=== PATIENT | female | born 1985 | race Caucasian/White ===

== ENCOUNTER 2016-03-14 13:28 | Outpatient (RCR) | payer OTHER | END 2016-03-20 | LOC: M PT 13:28 | PROVIDERS: ATTEND Orthopaedic Surgery | DX: Z51.89 Encounter for other specified aftercare (principal); M25.511 Pain in right shoulder; M41.20 Other idiopathic scoliosis, site unspecified ==

== ENCOUNTER 2016-03-29 03:16 | Emergency (ER) | payer OTHER ==
[2016-03-29] MEDS ORDERED: PROMETHAZINE INJ 25 MG/ML VIAL (J2550) As Ordered ONE (04:05)
--- NOTE | 2016-03-29 05:37 | EDDOCDS ---
Physician Documentation [facility] Name: Swetha Barbour Age: 30 yrs Sex: Female : 1985 Arrival Date: 03/29/2016 Time: 03:16 Bed 11 Private MD: Disposition: 03/29 05:22 Critical Care: Critical care not applicable. pc Disposition: 03/29/16 05:23 Discharged to Home/Self Care. Impression: Other viral enteritis, Anxiety disorder, unspecified. - Condition is Stable. - Discharge Instructions: Clear Liquid Diet, Viral Gastroenteritis. - Prescriptions for ZOFRAN ODT 4 mg - dissolve 1 tablet by ORAL route 4 times per day As needed do not chew, do not swallow whole; 10 tablet. - Medication Reconciliation, Local Pharmacy Hours form. - Follow up: Gracie Xavier MD; When: Call to arrange an appointment; Reason: Continuance of care. - Problem is new. - Symptoms have improved. HPI: 03:52 This 30 yrs old Female presents to ER via Walkin/Carried/Asstd with pc complaints of Abdominal Pain, Nausea/Vomiting. 03:52 The history is obtained from the patient. The patient presents with abdominal pain, pc umbilical area vomiting. The symptoms began suddenly at 02:30, and are unchanged since their onset. There have been multiple episodes. The patient has had contact with other people with similar complaints. Her 5yo child has been vomiting for 24 hours. At its worst, the symptoms were moderate. In the emergency department, the symptoms is mild. The pain is described as cramping. The is primarily located umbilical area. It does not radiate. The patient has not experienced similar symptoms in the past. The patient has not recently seen a physician. She says she is also having a panic attack because she doesn't "do well when people are vomiting and between my son being sick and now me, I think I'm just very anxious". Historical: - Allergies: Morphine; - Home Meds: 1. naproxen 500 mg Oral tab 1 tab every 12 hours 2. Tylenol 325 mg Oral tab 1 tab every 4 hours 3. Claritin 10 mg Oral tab 1 tab once daily - PMHx: Anxiety; - PSHx: ; wrist, left; mole removal; Tubal ligation; - The history from nurses notes was reviewed: and I agree with what is documented. - Social history: Smoking status: Patient states was never smoker of tobacco. No barriers to communication noted, The patient speaks fluent Brazilian, Speaks appropriately for age. - : The pt / caregiver states he / she is not on anticoagulants. Home medication list is obtained from the patient. - Hospitalizations: : No recent hospitalization is reported. - Exposure Risk Screening:: None identified. - Immunization history:: All immunizations up-to-date. - Family history: Not pertinent. - Social history:: the patient is a non-smoker, the patient does not drink alcohol. 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 The constitutional, cardiovascular, pc respiratory and neurological components are also addressed in the HPI. Exam: 03:52 General Appearance: alert, mild distress, anxious. pc 03:52 ENT: ear, nose and throat normal, pharynx normal. 03:52 Neck: The exam reveals no acute abnormalities. ROM is normal and painless. No nuchal rigidity is noted.. 03:52 Respiratory: no respiratory distress, normal breath sounds. 03:52 Cardiovascular: regular heart rhythm, normal heart sounds, equal and full pulses bilaterally, tachycardia, 115bpm. 03:52 Abdomen: soft, non-tender, no organomegaly, bowel sounds hyperactive. 03:52 Back: normal inspection. 03:52 Skin: skin color is normal, warm, dry. 03:52 Extremities: The extremities have a grossly normal appearance, are non-tender, without acute ROM abnormalities. 03:52 Neuro: oriented x 3, cranial nerves normal as tested, no motor deficits, no sensory deficits. 03:52 Psych: mood is normal, affect is appropriate. Vital Signs: 03:36 BP 122 / 76; Pulse 124; Resp 18; Temp 98.3(TE); Pulse Ox 98% ; Weight 62.6 kg / 138.01 nn1 lbs; Height 5 ft. 7 in. (170.18 cm); Pain 6/10; 05:12 Pulse 118 MON; cf2 05:12 Temp 98.0; Pulse Ox 99% on R/A; cf2 05:17 BP 116 / 69 (auto/); cf2 03:36 Body Mass Index 21.61 (62.60 kg, 170.18 cm) nn1 MDM: 03:52 IV Saline Lock ordered. pc 03:52 NS 0.9% 500 ml IV at bolus once ordered. pc 03:52 Promethazine 25 mg IVP once; dilute and administer 30-60 minutes ordered. pc 03:52 Differential diagnosis: Gastroenteritis anxiety. Plan: meds, IVF. pc 04:05 Financial registration complete. pm4 04:12 [facility] Payment Agreement was scanned into [employer] and attached to record. pm4 05:08 Vital Signs ordered. pc 05:22 Data reviewed: old medical records, vital signs, nurses notes. Test interpretation: pc none. The patient has been re-examined and re-evaluated. The patient's symptoms have markedly improved after treatment. Disposition: The historical points, examination findings, and any diagnostic results supporting the provided diagnosis, were discussed with the patient or legal guardian. The need for outpatient follow up with the provider listed on their discharge instructions was discussed. They were encouraged to return to [facility], or the nearest ED, if symptoms worsen/persist, or for any other questions/concerns. Administered Medications: 04:00 Drug: NS 0.9% 500 ml [sodium chloride 0.9 % intravenous solution] Route: IV; Rate: cf2 bolus; Site: left antecubital; 04:00 Drug: Promethazine 25 mg [promethazine 25 mg/mL injection solution (1 mL)] Route: IVP; cf2 Site: left antecubital; Signatures: Kris Marshall MD MD pc Nunez, Nikkole, RN RN nn1 Myriam Branch RN RN cf2 Israel Lawrence, Reg Reg pm4 The chart was reviewed and I authenticate all verbal orders and agree with the evaluation and treatment provided.Attachments: 04:12 [facility] Payment Agreement pm4 MTDD
--- NOTE | 2016-03-29 05:38 | EDDOCDS ---
Nurse's Notes [facility] Name: Swetha Barbour Age: 30 yrs Sex: Female : 1985 Arrival Date: 03/29/2016 Time: 03:16 Bed 11 Private MD: Diagnosis: Other viral enteritis;Anxiety disorder, unspecified Presentation: 03/29 03:30 Presenting complaint: Patient states: sudden onset of weakness and dizziness since nn1 arrival to ED. Reports nausea and vomiting since 0230. Reports 6 episodes of vomiting. Reports right sided abdominal pain. States she feels shaky, has been ahving cold sweats. Risk factors: the patient reports no vaginal bleeding. Adult Sepsis Screening: The patient does not have new or worsening altered mentation. Patient's respiratory rate is less than 22. Systolic blood pressure is greater than 100. Patient has a qSOFA score of 0- Negative Sepsis Screen. Suicide/Homicide risk assessment- the patient denies having any suicidal and/or homicidal ideations and does not present with any other emotional, behavioral or mental health complaints. Status: Patient is not a inbound customer service representative or dependent. Transition of care: patient was not received from another setting of care. 03:30 Acuity: JOSELINE Level 3 nn1 03:30 Method Of Arrival: Walkin/Carried/Asstd nn1 Triage Assessment: 03:34 General: Appears ill, uncomfortable, Behavior is appropriate for age, cooperative. nn1 Pain: Location: right upper quadrant Pain currently is 6 out of 10 on a pain scale. At worst was 8 out of 10 on a pain scale. Quality of pain is described as sharp, stabbing. HIV screening NA for this visit Offered previously. Neurological: Level of Consciousness is awake, alert, obeys commands, Oriented to person, place, time. Neurological: Reports dizziness, weakness. Cardiovascular:. GI: Abdomen is non- distended Reports nausea, vomiting, heart burn. Derm: Skin is pink, warm & dry. 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 naproxen 500 mg Oral tab 1 tab every 12 hours 2. Tylenol 325 mg Oral tab 1 tab every 4 hours 3. Claritin 10 mg Oral tab 1 tab once daily - PMHx: Anxiety; - PSHx: ; wrist, left; mole removal; Tubal ligation; - The history from nurses notes was reviewed: and I agree with what is documented. - Social history: Smoking status: Patient states was never smoker of tobacco. No barriers to communication noted, The patient speaks fluent Kyrgyz, Speaks appropriately for age. - : The pt / caregiver states he / she is not on anticoagulants. Home medication list is obtained from the patient. - Hospitalizations: : No recent hospitalization is reported. - Exposure Risk Screening:: None identified. - Immunization history:: All immunizations up-to-date. - Family history: Not pertinent. - Social history:: the patient is a non-smoker, the patient does not drink alcohol. Screenin:49 Screening information is obtained from the patient. Fall risk: No risks identified. cf2 Assistance ADL's: requires no assistance with activities of daily living. Abuse/DV Screen: The patient / caregiver reports he/she is: not in a situation that causes fear, pain or injury. Nutritional screening: No deficits noted. Advance Directives: Further advance directive information is declined. home support is adequate. Assessment: 04:49 Adult Sepsis Screening: The patient does not have new or worsening altered mentation. cf2 Patient's respiratory rate is less than 22. Systolic blood pressure is greater than 100. Patient has a qSOFA score of 0- Negative Sepsis Screen. General: Appears ill, Behavior is appropriate for age, flat. Pain: Location: abdomen. Neurological: No deficits noted. EENT: No deficits noted. Cardiovascular: No deficits noted. Respiratory: No deficits noted. GI: Abdomen is flat, non- distended Bowel sounds present X 4 quads. Abd is soft Abd is tender to palpation in right upper quadrant Guarding noted in right upper quadrant Reports upper abd pain, nausea, vomiting, intolerance of food, intolerance of fluids. : No deficits noted. Derm: No deficits noted. Musculoskeletal: No deficits noted. Injury Description: No known injury. 05:28 Reassessment: Patient states feeling better. Patient states symptoms have improved. cf2 Vital Signs: 03:36 BP 122 / 76; Pulse 124; Resp 18; Temp 98.3(TE); Pulse Ox 98% ; Weight 62.6 kg; Height 5 nn1 ft. 7 in. (170.18 cm); Pain 6/10; 05:12 Pulse 118 MON; cf2 05:12 Temp 98.0; Pulse Ox 99% on R/A; cf2 05:17 BP 116 / 69 (auto/); cf2 03:36 Body Mass Index 21.61 (62.60 kg, 170.18 cm) nn1 Vitals: 03:36 Log In Time: March 29, 2016 at 03:19. nn1 ED Course: 03:18 Patient visited by Brit Sullivan Reg. hs2 03:18 Patient moved to Waiting hs2 03:32 Triage Initiated nn1 03:38 Patient moved to 11 nn1 03:44 Kris Marshall MD is Attending Physician. pc 03:45 Myriam Branch RN is Primary Nurse. cf2 03:45 Patient visited by Myriam Branch RN. cf2 03:52 Patient visited by Kris Marshall MD. pc 04:03 Patient visited by Myriam Branch RN. cf2 04:08 Inserted saline lock: 20 gauge in left antecubital area. mgs 04:12 [facility] Payment Agreement was scanned into [employer] and attached to record. pm4 04:35 Patient visited by Myriam Branch RN. cf2 04:49 Patient visited by Myriam Branch RN. cf2 04:49 The patient / caregiver is instructed regarding the plan of care and ED course. Patient cf2 has correct armband on for positive identification. Placed in gown. Bed in low position. Call light in reach. Side rails up X 1. Side rails up X2. ekg monitor tech on. Pulse ox on. Property :Personal belongings accompany Pt. Door closed. Noise minimized. Visitors limited. Lights dimmed. Moved to private room. Verbal reassurance given. Warm blanket given. Pillow given. Head of bed elevated. Diet: Patient is NPO. 04:49 No procedures done that require assistance. cf2 05:19 Patient visited by Myriam Branch RN. cf2 05:23 Gracie Xavier MD is Referral Physician. pc 05:28 Patient visited by Myriam Branch RN. cf2 05:36 Patient visited by Myriam Branch RN. cf2 05:36 Discontinued lock. cf2 Administered Medications: 04:00 Drug: NS 0.9% 500 ml [sodium chloride 0.9 % intravenous solution] Route: IV; Rate: cf2 bolus; Site: left antecubital; 04:00 Drug: Promethazine 25 mg [promethazine 25 mg/mL injection solution (1 mL)] Route: IVP; cf2 Site: left antecubital; Order Results: There are currently no results for this order. Outcome: 05:23 Discharge ordered by Provider. 05:28 Discharge Assessment: Patient awake, alert and oriented x 3. No cognitive and/or cf2 functional deficits noted. Patient verbalized understanding of disposition instructions. Patient awake and alert. Oriented to person, place and time. patient administered narcotics - no. The following High Risk Discharge criteria are identified: None. Discharged to home ambulatory. Condition: good Condition: stable. Discharge instructions given to patient, Instructed on discharge instructions, follow up and referral plans. medication usage, Demonstrated understanding of instructions, medications, Prescriptions given X 1. No special radiology studies were completed. 05:37 Patient left the ED. cf2 Signatures: Kris Marshall MD MD Jarek Go,SHIRLEY RN mgs Jenniffer Huerta RN RN nn1 Brit Sullivan, Reg Reg hs2 Myriam Branch RN RN cf2 Israel Lawrence, Reg Reg pm4 MTDD
--- NOTE | 2016-03-31 06:37 | EDDOCDS ---
Physician Documentation [facility] Name: Swetha Barbour Age: 30 yrs Sex: Female : 1985 Arrival Date: 03/29/2016 Time: 03:16 Bed 11 Private MD: Disposition: 03/29 05:22 Critical Care: Critical care not applicable. pc Disposition: 03/29/16 05:23 Discharged to Home/Self Care. Impression: Other viral enteritis, Anxiety disorder, unspecified. - Condition is Stable. - Discharge Instructions: Clear Liquid Diet, Viral Gastroenteritis. - Prescriptions for ZOFRAN ODT 4 mg - dissolve 1 tablet by ORAL route 4 times per day As needed do not chew, do not swallow whole; 10 tablet. - Medication Reconciliation, Local Pharmacy Hours form. - Follow up: Gracie Xavier MD; When: Call to arrange an appointment; Reason: Continuance of care. - Problem is new. - Symptoms have improved. HPI: 03:52 This 30 yrs old Female presents to ER via Walkin/Carried/Asstd with pc complaints of Abdominal Pain, Nausea/Vomiting. 03:52 The history is obtained from the patient. The patient presents with abdominal pain, pc umbilical area vomiting. The symptoms began suddenly at 02:30, and are unchanged since their onset. There have been multiple episodes. The patient has had contact with other people with similar complaints. Her 5yo child has been vomiting for 24 hours. At its worst, the symptoms were moderate. In the emergency department, the symptoms is mild. The pain is described as cramping. The is primarily located umbilical area. It does not radiate. The patient has not experienced similar symptoms in the past. The patient has not recently seen a physician. She says she is also having a panic attack because she doesn't "do well when people are vomiting and between my son being sick and now me, I think I'm just very anxious". Historical: - Allergies: Morphine; - Home Meds: 1. naproxen 500 mg Oral tab 1 tab every 12 hours 2. Tylenol 325 mg Oral tab 1 tab every 4 hours 3. Claritin 10 mg Oral tab 1 tab once daily - PMHx: Anxiety; - PSHx: ; wrist, left; mole removal; Tubal ligation; - The history from nurses notes was reviewed: and I agree with what is documented. - Social history: Smoking status: Patient states was never smoker of tobacco. No barriers to communication noted, The patient speaks fluent Guamanian, Speaks appropriately for age. - : The pt / caregiver states he / she is not on anticoagulants. Home medication list is obtained from the patient. - Hospitalizations: : No recent hospitalization is reported. - Exposure Risk Screening:: None identified. - Immunization history:: All immunizations up-to-date. - Family history: Not pertinent. - Social history:: the patient is a non-smoker, the patient does not drink alcohol. 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 The constitutional, cardiovascular, pc respiratory and neurological components are also addressed in the HPI. Exam: 03:52 General Appearance: alert, mild distress, anxious. pc 03:52 ENT: ear, nose and throat normal, pharynx normal. 03:52 Neck: The exam reveals no acute abnormalities. ROM is normal and painless. No nuchal rigidity is noted.. 03:52 Respiratory: no respiratory distress, normal breath sounds. 03:52 Cardiovascular: regular heart rhythm, normal heart sounds, equal and full pulses bilaterally, tachycardia, 115bpm. 03:52 Abdomen: soft, non-tender, no organomegaly, bowel sounds hyperactive. 03:52 Back: normal inspection. 03:52 Skin: skin color is normal, warm, dry. 03:52 Extremities: The extremities have a grossly normal appearance, are non-tender, without acute ROM abnormalities. 03:52 Neuro: oriented x 3, cranial nerves normal as tested, no motor deficits, no sensory deficits. 03:52 Psych: mood is normal, affect is appropriate. Vital Signs: 03:36 BP 122 / 76; Pulse 124; Resp 18; Temp 98.3(TE); Pulse Ox 98% ; Weight 62.6 kg / 138.01 nn1 lbs; Height 5 ft. 7 in. (170.18 cm); Pain 6/10; 05:12 Pulse 118 MON; cf2 05:12 Temp 98.0; Pulse Ox 99% on R/A; cf2 05:17 BP 116 / 69 (auto/); cf2 03:36 Body Mass Index 21.61 (62.60 kg, 170.18 cm) nn1 MDM: 03:52 IV Saline Lock ordered. pc 03:52 NS 0.9% 500 ml IV at bolus once ordered. pc 03:52 Promethazine 25 mg IVP once; dilute and administer 30-60 minutes ordered. pc 03:52 Differential diagnosis: Gastroenteritis anxiety. Plan: meds, IVF. pc 04:05 Financial registration complete. pm4 04:12 [facility] Payment Agreement was scanned into [employer] and attached to record. pm4 05:08 Vital Signs ordered. pc 05:22 Data reviewed: old medical records, vital signs, nurses notes. Test interpretation: pc none. The patient has been re-examined and re-evaluated. The patient's symptoms have markedly improved after treatment. Disposition: The historical points, examination findings, and any diagnostic results supporting the provided diagnosis, were discussed with the patient or legal guardian. The need for outpatient follow up with the provider listed on their discharge instructions was discussed. They were encouraged to return to [facility], or the nearest ED, if symptoms worsen/persist, or for any other questions/concerns. Administered Medications: 04:00 Drug: NS 0.9% 500 ml [sodium chloride 0.9 % intravenous solution] Route: IV; Rate: cf2 bolus; Site: left antecubital; 04:00 Drug: Promethazine 25 mg [promethazine 25 mg/mL injection solution (1 mL)] Route: IVP; cf2 Site: left antecubital; Signatures: Kris Marshall MD MD pc Nunez, Nikkole, RN RN nn1 Myriam Branch RN RN cf2 Israel Lawrence, Reg Reg pm4 The chart was reviewed and I authenticate all verbal orders and agree with the evaluation and treatment provided.Attachments: 04:12 [facility] Payment Agreement pm4 Chart Complete MTDD
--- NOTE | 2016-03-31 06:37 | EDDOCDS ---
Nurse's Notes [facility] Name: Swetha Barbour Age: 30 yrs Sex: Female : 1985 Arrival Date: 03/29/2016 Time: 03:16 Bed 11 Private MD: Diagnosis: Other viral enteritis;Anxiety disorder, unspecified Presentation: 03/29 03:30 Presenting complaint: Patient states: sudden onset of weakness and dizziness since nn1 arrival to ED. Reports nausea and vomiting since 0230. Reports 6 episodes of vomiting. Reports right sided abdominal pain. States she feels shaky, has been ahving cold sweats. Risk factors: the patient reports no vaginal bleeding. Adult Sepsis Screening: The patient does not have new or worsening altered mentation. Patient's respiratory rate is less than 22. Systolic blood pressure is greater than 100. Patient has a qSOFA score of 0- Negative Sepsis Screen. Suicide/Homicide risk assessment- the patient denies having any suicidal and/or homicidal ideations and does not present with any other emotional, behavioral or mental health complaints. 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 Transition of care: patient was not received from another setting of care. 03:30 Acuity: JOSELINE Level 3 nn1 03:30 Method Of Arrival: Walkin/Carried/Asstd nn1 Triage Assessment: 03:34 General: Appears ill, uncomfortable, Behavior is appropriate for age, cooperative. nn1 Pain: Location: right upper quadrant Pain currently is 6 out of 10 on a pain scale. At worst was 8 out of 10 on a pain scale. Quality of pain is described as sharp, stabbing. HIV screening NA for this visit Offered previously. Neurological: Level of Consciousness is awake, alert, obeys commands, Oriented to person, place, time. Neurological: Reports dizziness, weakness. Cardiovascular:. GI: Abdomen is non- distended Reports nausea, vomiting, heart burn. Derm: Skin is pink, warm & dry. 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 naproxen 500 mg Oral tab 1 tab every 12 hours 2. Tylenol 325 mg Oral tab 1 tab every 4 hours 3. Claritin 10 mg Oral tab 1 tab once daily - PMHx: Anxiety; - PSHx: ; wrist, left; mole removal; Tubal ligation; - The history from nurses notes was reviewed: and I agree with what is documented. - Social history: Smoking status: Patient states was never smoker of tobacco. No barriers to communication noted, The patient speaks fluent Syriac, Speaks appropriately for age. - : The pt / caregiver states he / she is not on anticoagulants. Home medication list is obtained from the patient. - Hospitalizations: : No recent hospitalization is reported. - Exposure Risk Screening:: None identified. - Immunization history:: All immunizations up-to-date. - Family history: Not pertinent. - Social history:: the patient is a non-smoker, the patient does not drink alcohol. Screenin:49 Screening information is obtained from the patient. Fall risk: No risks identified. cf2 Assistance ADL's: requires no assistance with activities of daily living. Abuse/DV Screen: The patient / caregiver reports he/she is: not in a situation that causes fear, pain or injury. Nutritional screening: No deficits noted. Advance Directives: Further advance directive information is declined. home support is adequate. Assessment: 04:49 Adult Sepsis Screening: The patient does not have new or worsening altered mentation. cf2 Patient's respiratory rate is less than 22. Systolic blood pressure is greater than 100. Patient has a qSOFA score of 0- Negative Sepsis Screen. General: Appears ill, Behavior is appropriate for age, flat. Pain: Location: abdomen. Neurological: No deficits noted. EENT: No deficits noted. Cardiovascular: No deficits noted. Respiratory: No deficits noted. GI: Abdomen is flat, non- distended Bowel sounds present X 4 quads. Abd is soft Abd is tender to palpation in right upper quadrant Guarding noted in right upper quadrant Reports upper abd pain, nausea, vomiting, intolerance of food, intolerance of fluids. : No deficits noted. Derm: No deficits noted. Musculoskeletal: No deficits noted. Injury Description: No known injury. 05:28 Reassessment: Patient states feeling better. Patient states symptoms have improved. cf2 Vital Signs: 03:36 BP 122 / 76; Pulse 124; Resp 18; Temp 98.3(TE); Pulse Ox 98% ; Weight 62.6 kg; Height 5 nn1 ft. 7 in. (170.18 cm); Pain 6/10; 05:12 Pulse 118 MON; cf2 05:12 Temp 98.0; Pulse Ox 99% on R/A; cf2 05:17 BP 116 / 69 (auto/); cf2 03:36 Body Mass Index 21.61 (62.60 kg, 170.18 cm) nn1 Vitals: 03:36 Log In Time: March 29, 2016 at 03:19. nn1 ED Course: 03:18 Patient visited by Brit Sullivan Reg. hs2 03:18 Patient moved to Waiting hs2 03:32 Triage Initiated nn1 03:38 Patient moved to 11 nn1 03:44 Kris Marshall MD is Attending Physician. pc 03:45 Myriam Branch RN is Primary Nurse. cf2 03:45 Patient visited by Myriam Branch RN. cf2 03:52 Patient visited by Kris Marshall MD. pc 04:03 Patient visited by Myriam Branch RN. cf2 04:08 Inserted saline lock: 20 gauge in left antecubital area. mgs 04:12 [facility] Payment Agreement was scanned into [employer] and attached to record. pm4 04:35 Patient visited by Myriam Branch RN. cf2 04:49 Patient visited by Myriam Branch RN. cf2 04:49 The patient / caregiver is instructed regarding the plan of care and ED course. Patient cf2 has correct armband on for positive identification. Placed in gown. Bed in low position. Call light in reach. Side rails up X 1. Side rails up X2. radiation monitor on. Pulse ox on. Property :Personal belongings accompany Pt. Door closed. Noise minimized. Visitors limited. Lights dimmed. Moved to private room. Verbal reassurance given. Warm blanket given. Pillow given. Head of bed elevated. Diet: Patient is NPO. 04:49 No procedures done that require assistance. cf2 05:19 Patient visited by Myriam Branch RN. cf2 05:23 Gracie Xavier MD is Referral Physician. pc 05:28 Patient visited by Myriam Branch RN. cf2 05:36 Patient visited by Myriam Branch RN. cf2 05:36 Discontinued lock. cf2 Administered Medications: 04:00 Drug: NS 0.9% 500 ml [sodium chloride 0.9 % intravenous solution] Route: IV; Rate: cf2 bolus; Site: left antecubital; 04:00 Drug: Promethazine 25 mg [promethazine 25 mg/mL injection solution (1 mL)] Route: IVP; cf2 Site: left antecubital; Order Results: There are currently no results for this order. Outcome: 05:23 Discharge ordered by Provider. 05:28 Discharge Assessment: Patient awake, alert and oriented x 3. No cognitive and/or cf2 functional deficits noted. Patient verbalized understanding of disposition instructions. Patient awake and alert. Oriented to person, place and time. patient administered narcotics - no. The following High Risk Discharge criteria are identified: None. Discharged to home ambulatory. Condition: good Condition: stable. Discharge instructions given to patient, Instructed on discharge instructions, follow up and referral plans. medication usage, Demonstrated understanding of instructions, medications, Prescriptions given X 1. No special radiology studies were completed. 05:37 Patient left the ED. cf2 Signatures: Kris Marshall MD MD Jarek Go,SHIRLEY RN s Jenniffer Huerta RN RN nn1 Brit Sullivan, Reg Reg hs2 Myriam Branch RN RN cf2 Israel Lawrence, Reg Reg pm4 Chart Complete MTDD
--- NOTE | 2016-03-31 06:37 | EDDOCDS ---
Physician Documentation [facility] Name: Swetha Barbour Age: 30 yrs Sex: Female : 1985 Arrival Date: 03/29/2016 Time: 03:16 Bed 11 Private MD: Disposition: 03/29 05:22 Critical Care: Critical care not applicable. pc Disposition: 03/29/16 05:23 Discharged to Home/Self Care. Impression: Other viral enteritis, Anxiety disorder, unspecified. - Condition is Stable. - Discharge Instructions: Clear Liquid Diet, Viral Gastroenteritis. - Prescriptions for ZOFRAN ODT 4 mg - dissolve 1 tablet by ORAL route 4 times per day As needed do not chew, do not swallow whole; 10 tablet. - Medication Reconciliation, Local Pharmacy Hours form. - Follow up: Gracie Xavier MD; When: Call to arrange an appointment; Reason: Continuance of care. - Problem is new. - Symptoms have improved. HPI: 03:52 This 30 yrs old Female presents to ER via Walkin/Carried/Asstd with pc complaints of Abdominal Pain, Nausea/Vomiting. 03:52 The history is obtained from the patient. The patient presents with abdominal pain, pc umbilical area vomiting. The symptoms began suddenly at 02:30, and are unchanged since their onset. There have been multiple episodes. The patient has had contact with other people with similar complaints. Her 5yo child has been vomiting for 24 hours. At its worst, the symptoms were moderate. In the emergency department, the symptoms is mild. The pain is described as cramping. The is primarily located umbilical area. It does not radiate. The patient has not experienced similar symptoms in the past. The patient has not recently seen a physician. She says she is also having a panic attack because she doesn't "do well when people are vomiting and between my son being sick and now me, I think I'm just very anxious". Historical: - Allergies: Morphine; - Home Meds: 1. naproxen 500 mg Oral tab 1 tab every 12 hours 2. Tylenol 325 mg Oral tab 1 tab every 4 hours 3. Claritin 10 mg Oral tab 1 tab once daily - PMHx: Anxiety; - PSHx: ; wrist, left; mole removal; Tubal ligation; - The history from nurses notes was reviewed: and I agree with what is documented. - Social history: Smoking status: Patient states was never smoker of tobacco. No barriers to communication noted, The patient speaks fluent Polish, Speaks appropriately for age. - : The pt / caregiver states he / she is not on anticoagulants. Home medication list is obtained from the patient. - Hospitalizations: : No recent hospitalization is reported. - Exposure Risk Screening:: None identified. - Immunization history:: All immunizations up-to-date. - Family history: Not pertinent. - Social history:: the patient is a non-smoker, the patient does not drink alcohol. 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 The constitutional, cardiovascular, pc respiratory and neurological components are also addressed in the HPI. Exam: 03:52 General Appearance: alert, mild distress, anxious. pc 03:52 ENT: ear, nose and throat normal, pharynx normal. 03:52 Neck: The exam reveals no acute abnormalities. ROM is normal and painless. No nuchal rigidity is noted.. 03:52 Respiratory: no respiratory distress, normal breath sounds. 03:52 Cardiovascular: regular heart rhythm, normal heart sounds, equal and full pulses bilaterally, tachycardia, 115bpm. 03:52 Abdomen: soft, non-tender, no organomegaly, bowel sounds hyperactive. 03:52 Back: normal inspection. 03:52 Skin: skin color is normal, warm, dry. 03:52 Extremities: The extremities have a grossly normal appearance, are non-tender, without acute ROM abnormalities. 03:52 Neuro: oriented x 3, cranial nerves normal as tested, no motor deficits, no sensory deficits. 03:52 Psych: mood is normal, affect is appropriate. Vital Signs: 03:36 BP 122 / 76; Pulse 124; Resp 18; Temp 98.3(TE); Pulse Ox 98% ; Weight 62.6 kg / 138.01 nn1 lbs; Height 5 ft. 7 in. (170.18 cm); Pain 6/10; 05:12 Pulse 118 MON; cf2 05:12 Temp 98.0; Pulse Ox 99% on R/A; cf2 05:17 BP 116 / 69 (auto/); cf2 03:36 Body Mass Index 21.61 (62.60 kg, 170.18 cm) nn1 MDM: 03:52 IV Saline Lock ordered. pc 03:52 NS 0.9% 500 ml IV at bolus once ordered. pc 03:52 Promethazine 25 mg IVP once; dilute and administer 30-60 minutes ordered. pc 03:52 Differential diagnosis: Gastroenteritis anxiety. Plan: meds, IVF. pc 04:05 Financial registration complete. pm4 04:12 [facility] Payment Agreement was scanned into [employer] and attached to record. pm4 05:08 Vital Signs ordered. pc 05:22 Data reviewed: old medical records, vital signs, nurses notes. Test interpretation: pc none. The patient has been re-examined and re-evaluated. The patient's symptoms have markedly improved after treatment. Disposition: The historical points, examination findings, and any diagnostic results supporting the provided diagnosis, were discussed with the patient or legal guardian. The need for outpatient follow up with the provider listed on their discharge instructions was discussed. They were encouraged to return to [facility], or the nearest ED, if symptoms worsen/persist, or for any other questions/concerns. Administered Medications: 04:00 Drug: NS 0.9% 500 ml [sodium chloride 0.9 % intravenous solution] Route: IV; Rate: cf2 bolus; Site: left antecubital; 04:00 Drug: Promethazine 25 mg [promethazine 25 mg/mL injection solution (1 mL)] Route: IVP; cf2 Site: left antecubital; Signatures: Kris Marshall MD MD pc Nunez, Nikkole, RN RN nn1 Myriam Branch RN RN cf2 Israel Lawrence, Reg Reg pm4 The chart was reviewed and I authenticate all verbal orders and agree with the evaluation and treatment provided.Attachments: 04:12 [facility] Payment Agreement pm4 Chart Complete MTDD
== END 2016-03-29 05:37 | disposition home or self-care (01) ==
LOC: M ED 03:16
DX: A08.39 Other viral enteritis (principal); F41.9 Anxiety disorder, unspecified; Z79.899 Other long term (current) drug therapy; Z88.5 Allergy status to narcotic agent

== ENCOUNTER 2016-04-16 12:00 | Outpatient (RCR) | payer OTHER | END 2016-04-17 | LOC: M PT 12:00 | PROVIDERS: ATTEND Orthopaedic Surgery | DX: Z51.89 Encounter for other specified aftercare (principal); M41.20 Other idiopathic scoliosis, site unspecified; M25.511 Pain in right shoulder ==

== ENCOUNTER 2016-06-12 07:00 | Outpatient (RCR) | payer OTHER | END 2016-06-17 | LOC: M PT 07:00 | PROVIDERS: ATTEND Orthopaedic Surgery | DX: Z51.89 Encounter for other specified aftercare (principal); M75.121 Complete rotator cuff tear or rupture of right shoulder, not specified as traumatic ==

== ENCOUNTER 2016-07-12 07:45 | Outpatient (RCR) | payer MEDICAID, OTHER, SELFPAY | END 2016-07-18 | LOC: M PT 07:45 | PROVIDERS: ATTEND Orthopaedic Surgery | DX: Z51.89 Encounter for other specified aftercare (principal); Z96.9 Presence of functional implant, unspecified ==

== ENCOUNTER 2016-08-02 09:15 | Outpatient (RCR) | payer OTHER | END 2016-08-17 | LOC: M PT 09:15 | PROVIDERS: ATTEND Orthopaedic Surgery | DX: Z51.89 Encounter for other specified aftercare (principal); M25.511 Pain in right shoulder ==

== ENCOUNTER 2016-10-25 04:11 | Emergency (ER) | payer OTHER ==
[~2016-10-25] VITALS: Ht 172.7 cm; Wt 62.7 kg
[2016-10-25] MEDS ORDERED: ONDANSETRON 4MG/2ML VIAL (J2405) IV ONE (05:15)
[2016-10-25] MEDS ORDERED: HYDROmorphone HCL 1 MG/ML SYRINGE (J1170) IV PRN (05:15)
[2016-10-25] MEDS ORDERED: NS 1,000 ML IV ONE (05:15)
--- NOTE | 2016-10-25 06:00 | REPUSA ---
CLINICAL HISTORY: Abdominal pain. TECHNIQUE: Realtime sonographic images were obtained in multiple projections. COMMENTS: The liver is of normal size, parenchyma demonstrates normal echogenicity. No discrete hepatic mass is seen. There is no intra or extrahepatic biliary ductal dilatation. CBD measures 3.5mm. The gallbladder is physiologically distended without evidence of calculi. The gallbladder wall is not thickened and there is no pericholecystic fluid. There is no abdominal ascites. The right kidney measures 10.5 x 4.9 x 4.3 cm, free of hydronephrosis. IMPRESSION: Unremarkable study. Thank you for your kind referral of this patient.
[2016-10-25 06:12] LABS: BASO % 0.8 % (0.0-1.0); EOS # 0.1 K/mm3 (0.0-0.50); EOS % 1.9 % (0.0-3.0); LARGE UNSTAINED CELL # 0.1 K/mm3 (0.0-0.4); LYMPH # 1.5 K/mm3 (1.5-4.5); LYMPH % 28.7 % (24.0-44.0); MEAN CORPUSCULAR HEMOGLOBIN 30.1 pg (27.0-33.0); MEAN CORPUSCULAR HGB CONC 33.2 g/dl (32.0-36.5); MEAN CORPUSCULAR VOLUME 90.8 fl (80.0-96.0); MONO # 0.3 K/mm3 (0.0-0.8); MONO % 6.3 % (0.0-5.0); NEUTROPHILS % 60.3 % (36.0-66.0); PLATELET COUNT, AUTOMATED 217 k/mm3 (150-450); RED CELL DISTRIBUTION WIDTH 12.6 % (11.5-14.5)
[2016-10-25 06:26] LABS: CONTROL LINE HCG INT CTR LINE PRESENT
[2016-10-25 06:34] LABS: ALBUMIN/GLOBULIN RATIO 1.21 (1.00-1.93); ALKALINE PHOSPHATASE 52 U/L (45-117); ALT/SGPT 14 U/L (12-78); ANION GAP 7 MEQ/L (8-16); AST/SGOT 15 U/L (15-37); BILIRUBIN,DIRECT < 0.1 MG/DL (0.0-0.2); BILIRUBIN,TOTAL 0.5 MG/DL (0.2-1.0); BLOOD UREA NITROGEN 13 MG/DL (7-18); CALCIUM LEVEL 8.4 MG/DL (8.5-10.1); CARBON DIOXIDE LEVEL 25 MEQ/L (21-32); CHLORIDE LEVEL 108 MEQ/L (98-107); CREATININE FOR GFR 0.64 MG/DL (0.55-1.02); GLOMERULAR FILTRATION RATE > 60.0 (>60); GLUCOSE, FASTING 115 MG/DL (70-105); POTASSIUM SERUM 4.1 MEQ/L (3.5-5.1); SODIUM LEVEL 140 MEQ/L (136-145); TOTAL PROTEIN 7.3 GM/DL (6.4-8.2)
[2016-10-25] MEDS ORDERED: HYOS0.1248 PO (06:40)
[2016-10-25] MEDS ORDERED: HYOSCYAMINE SULFATE 0.125 MG SUBL TABLET PO ONE (06:45)
[2016-10-25 07:11] VITALS: BP 104/63
== END 2016-10-25 07:15 | disposition home or self-care (01) ==
LOC: M ED 04:11
DX: K80.50 Calculus of bile duct without cholangitis or cholecystitis without obstruction (principal)
CPT/HCPCS: 76705; 80048; 80076; 81001; 83690; 84703; 85025; 87040; 87086; 96374; 96375; 99284; J1170; J2405

== ENCOUNTER 2016-10-27 04:02 | Emergency (ER) | payer OTHER ==
[~2016-10-27] VITALS: Ht 172.7 cm; Wt 63.0 kg
[~2016-10-27 04:02] MED LIST: HYOS0.1248 PO
[2016-10-27] MEDS ORDERED: NS 1,000 ML IV ONE (05:15)
[2016-10-27] MEDS ORDERED: LORazepam 2 MG/ML VIAL (J2060) IV STA (06:04)
[2016-10-27 06:10] LABS: BASO % 0.2 % (0.0-1.0); EOS % 0.7 % (0.0-3.0); LARGE UNSTAINED CELL # 0.1 K/mm3 (0.0-0.4); LARGE UNSTAINED CELL % 1.6 % (0.0-4.0); LYMPH # 1.1 K/mm3 (1.5-4.5); MEAN CORPUSCULAR HEMOGLOBIN 30.8 pg (27.0-33.0); MEAN CORPUSCULAR HGB CONC 34.2 g/dl (32.0-36.5); MONO # 0.2 K/mm3 (0.0-0.8); NEUTROPHILS # 3.5 K/mm3 (1.8-7.7); NEUTROPHILS % 71.5 % (36.0-66.0); PLATELET COUNT, AUTOMATED 256 k/mm3 (150-450); RED CELL DISTRIBUTION WIDTH 12.3 % (11.5-14.5)
[2016-10-27] MEDS ORDERED: HYDROmorphone HCL 1 MG/ML SYRINGE (J1170) IV PRN (06:15)
[2016-10-27] MEDS ORDERED: ONDANSETRON 4MG/2ML VIAL (J2405) IV ONE (06:15)
[2016-10-27 06:29] LABS: CONTROL LINE HCG INT CTR LINE PRESENT
[2016-10-27 06:43] LABS: ALBUMIN 4.3 GM/DL (3.2-5.2); ALKALINE PHOSPHATASE 64 U/L (45-117); ALT/SGPT 13 U/L (12-78); ANION GAP 7 MEQ/L (8-16); AST/SGOT 8 U/L (15-37); BILIRUBIN,DIRECT 0.1 MG/DL (0.0-0.2); BILIRUBIN,TOTAL 0.6 MG/DL (0.2-1.0); BLOOD UREA NITROGEN 11 MG/DL (7-18); CALCIUM LEVEL 9.1 MG/DL (8.5-10.1); CARBON DIOXIDE LEVEL 27 MEQ/L (21-32); CHLORIDE LEVEL 105 MEQ/L (98-107); CREATININE FOR GFR 0.66 MG/DL (0.55-1.02); GLOMERULAR FILTRATION RATE > 60.0 (>60); GLUCOSE, FASTING 113 MG/DL (70-105); POTASSIUM SERUM 3.8 MEQ/L (3.5-5.1); SODIUM LEVEL 139 MEQ/L (136-145); TOTAL PROTEIN 8.2 GM/DL (6.4-8.2)
[2016-10-27] MEDS ORDERED: GASTROGRAFIN SOLUTION 30ML PO ONE (07:15)
[2016-10-27] MEDS ORDERED: GASTROGRAFIN SOLUTION 30ML (Q9963) PO ONE (07:45)
[2016-10-27] MEDS ORDERED: ISOVUE-370 76% 100ML VIAL (Q9967) As Ordered ONE (08:52)
[2016-10-27] MEDS ORDERED: BENT20TA PO (09:35)
[2016-10-27 10:01] VITALS: BP 111/60
--- NOTE | 2016-10-29 08:16 | REP ---
Clinical: Acute abdominal pain. Technique: Axial contrast enhanced images from the lung bases to the pubic symphysis using oral and 100 ml Isovue 370 intravenous contrast material with coronal and sagittal re-formations. Findings: Lung bases are clear. Visualized heart and pericardium normal. Liver, spleen, pancreas, gallbladder, bilateral adrenal glands and kidneys are normal. The enteric system is without obstruction or acute inflammatory process. Pelvis demonstrates normal bladder and age-appropriate uterus/adnexa. No ascites. No free air. No adenopathy. No mass lesion. Vasculature is normal. Musculoskeletal structures demonstrate chronic scoliosis. Impression: No acute abdominopelvic pathology appreciated. Signed by Titi Hanson MD 10/27/2016 09:12 A
== END 2016-10-27 10:14 | disposition home or self-care (01) ==
LOC: M ED 04:02
DX: K58.9 Irritable bowel syndrome, unspecified (principal)
CPT/HCPCS: 74177; 80048; 80076; 81001; 83605; 83690; 84703; 85025; 87040; 87086; 93041; 96374; 96375; 99284; J1170; J2060; J2405; Q9963; Q9967

== ENCOUNTER → 2016-11-07 | Outpatient (REF) | payer OTHER ==
[~2016-11-07] MED LIST changes: +BENT20TA PO; +OMEP20TA PO
== END ==
LOC: M SFHCPLAZ 09:17
PROVIDERS: ATTEND Family Medicine
DX: R10.11 Right upper quadrant pain (principal); R19.7 Diarrhea, unspecified

== ENCOUNTER → 2016-11-09 | Outpatient (CLI) | payer OTHER ==
--- NOTE | 2016-11-09 10:48 | REP ---
HIDA SCAN AND GALLBLADDER EJECTION FRACTION: Following the intravenous administration of 6.6 millicuries technetium 99m mebrofenin, multiple images of the right upper quadrant are performed every 5 minutes for a period of 1 hour. The gallbladder is visualized at 10 minutes postinjection. There is biliary to bowel transit at 25-30 minutes post injection. At the 1-hour iris 8 ounces of Ensure Enlive is ingested and further imaging performed for one hour. Gallbladder activity is measured and gallbladder ejection fraction is calculated at 92%, which is normal. IMPRESSION: Normal gallbladder ejection fraction. Signed by Aguilar Aj MD 11/09/2016 02:22 P
== END ==
LOC: M RAD 07:58
PROVIDERS: ATTEND Family Medicine
DX: R10.11 Right upper quadrant pain (principal)

== ENCOUNTER 2016-12-07 07:26 | Emergency (ER) | payer OTHER ==
[~2016-12-07] VITALS: Ht 170.2 cm; Wt 63.0 kg
[~2016-12-07 07:26] MED LIST changes: -OMEP20TA PO
[2016-12-07] MEDS ORDERED: OMEP20TA PO (07:39)
[2016-12-07 09:48] VITALS: BP 131/67
== END 2016-12-07 09:52 | disposition home or self-care (01) ==
LOC: M ED 07:26
DX: F41.9 Anxiety disorder, unspecified (principal); M41.9 Scoliosis, unspecified; J30.9 Allergic rhinitis, unspecified; Z79.899 Other long term (current) drug therapy; Z88.5 Allergy status to narcotic agent

== ENCOUNTER 2017-02-26 11:25 | Day surgery (SDC) | payer OTHER ==
[2017-02-26] MEDS: NS 1,000 ML IV (12:45)
[2017-02-26] MEDS ORDERED: MIDAZOLAM INJ 2 MG/2 ML VIAL (J2250) As Ordered (13:05)
[2017-02-26] MEDS ORDERED: LIDOCAINE 2% INJ 100 MG/5 ML SDV (FOR ANES.) As Ordered (13:14)
[2017-02-26] MEDS ORDERED: PROPOFOL 200 MG/20 ML VIAL As Ordered (13:14)
== END 2017-02-26 14:00 | disposition home or self-care (01) ==
LOC: M OPP 11:25
DX: R10.13 Epigastric pain (principal); K31.89 Other diseases of stomach and duodenum; R10.11 Right upper quadrant pain; R63.4 Abnormal weight loss; F31.9 Bipolar disorder, unspecified; K21.9 Gastro-esophageal reflux disease without esophagitis; E78.5 Hyperlipidemia, unspecified; R51 Headache; Z79.899 Other long term (current) drug therapy; Z88.5 Allergy status to narcotic agent; Z80.0 Family history of malignant neoplasm of digestive organs
CPT/HCPCS: 43239

== ENCOUNTER 2017-10-13 03:59 | Emergency (ER) | payer OTHER ==
[2017-10-13 04:35] LABS: BASO % 0.4 % (0.0-1.0); EOS # 0.1 10^3/uL (0.0-0.50); EOS % 1.5 % (0.0-3.0); HEMATOCRIT 37.5 % (36.0-47.0); HEMOGLOBIN 12.6 g/dl (12.0-15.5); IMMATURE GRANULOCYTE % 0.2 % (0-3.0); LYMPH # 1.2 10^3/uL (1.5-4.5); LYMPH % 24.3 % (24.0-44.0); MEAN CORPUSCULAR HEMOGLOBIN 30.4 pg (27.0-33.0); MEAN CORPUSCULAR HGB CONC 33.6 g/dl (32.0-36.5); MEAN CORPUSCULAR VOLUME 90.4 fl (80.0-96.0); MONO # 0.3 10^3/uL (0.0-0.8); MONO % 5.9 % (0.0-5.0); NEUTROPHILS # 3.2 10^3/uL (1.8-7.7); NEUTROPHILS % 67.7 % (36.0-66.0); PLATELET COUNT, AUTOMATED 212 10^3/uL (150-450); RED BLOOD COUNT 4.15 10^6/uL (4.00-5.40); RED CELL DISTRIBUTION WIDTH 12.3 % (11.5-14.5); WHITE BLOOD COUNT 4.8 10^3/uL (4.0-10.0)
[2017-10-13 04:39] LABS: APPEARANCE, URINE CLEAR (CLEAR); BACTERIA, URINE AUTO NEGATIVE (NEGATIVE); BILIRUBIN, URINE AUTO NEGATIVE (NEGATIVE); BLOOD, URINE BLOOD NEGATIVE (NEGATIVE); COLOR, URINE STRAW (YELLOW); GLUCOSE, URINE (UA) AUTO NEGATIVE (NEGATIVE); KETONE, URINE AUTO NEGATIVE (NEGATIVE); LEUKOCYTE ESTERASE, URINE AUTO NEGATIVE (NEGATIVE); MUCUS, URINE SMALL (NEGATIVE); NITRITE, URINE AUTO NEGATIVE (NEGATIVE); PROTEIN, URINE AUTO NEGATIVE (NEGATIVE); RBC, URINE AUTO 0 /HPF (0-3); SPECIFIC GRAVITY URINE AUTO 1.008 (1.002-1.035); SQUAMOUS EPITHELIAL CELL UR AU 1 /HPF (0-6); UROBILINOGEN, URINE AUTO 0.2 mg/dL (0.0-2.0); WBC, URINE AUTO 1 /HPF (0-3)
[2017-10-13 04:54] LABS: CONTROL LINE HCG INT CTR LINE PRESENT; HCG, SERUM QUALITATIVE NEGATIVE (NEGATIVE)
[2017-10-13 05:02] LABS: ALBUMIN 4.1 GM/DL (3.2-5.2); ALBUMIN/GLOBULIN RATIO 1.17 (1.00-1.93); ALKALINE PHOSPHATASE 54 U/L (45-117); ALT/SGPT 15 U/L (12-78); ANION GAP 6 MEQ/L (8-16); AST/SGOT 12 U/L (7-37); BILIRUBIN,DIRECT < 0.1 MG/DL (0.0-0.2); BILIRUBIN,TOTAL 0.3 MG/DL (0.2-1.0); BLOOD UREA NITROGEN 11 MG/DL (7-18); CALCIUM LEVEL 8.8 MG/DL (8.5-10.1); CARBON DIOXIDE LEVEL 29 MEQ/L (21-32); CHLORIDE LEVEL 108 MEQ/L (98-107); CREATININE FOR GFR 0.65 MG/DL (0.55-1.30); GLOMERULAR FILTRATION RATE > 60.0 (>60); GLUCOSE, FASTING 123 MG/DL (70-100); LIPASE 179 U/L (73-393); POTASSIUM SERUM 3.8 MEQ/L (3.5-5.1); SODIUM LEVEL 143 MEQ/L (136-145); TOTAL PROTEIN 7.6 GM/DL (6.4-8.2)
[2017-10-13] MEDS: NS 1,000 ML IV (05:15)
== END 2017-10-13 06:59 | disposition home or self-care (01) ==
LOC: M ED 03:59
DX: R10.9 Unspecified abdominal pain (principal); Z88.5 Allergy status to narcotic agent
CPT/HCPCS: 83690

== ENCOUNTER → 2017-12-24 | Outpatient (REF) | payer OTHER ==
[2017-12-24 13:40] LABS: HEMATOCRIT 43.3 % (36.0-47.0); HEMOGLOBIN 14.3 g/dl (12.0-15.5); MEAN CORPUSCULAR HEMOGLOBIN 30.3 pg (27.0-33.0); MEAN CORPUSCULAR VOLUME 91.7 fl (80.0-96.0); PLATELET COUNT, AUTOMATED 256 10^3/uL (150-450); RED BLOOD COUNT 4.72 10^6/uL (4.00-5.40); RED CELL DISTRIBUTION WIDTH 12.2 % (11.5-14.5); WHITE BLOOD COUNT 6.9 10^3/uL (4.0-10.0)
[2017-12-24 14:38] LABS: ALBUMIN 4.3 GM/DL (3.2-5.2); ALKALINE PHOSPHATASE 61 U/L (45-117); ALT/SGPT 17 U/L (12-78); ANION GAP 9 MEQ/L (8-16); AST/SGOT 13 U/L (7-37); BILIRUBIN,TOTAL 0.4 MG/DL (0.2-1.0); BLOOD UREA NITROGEN 10 MG/DL (7-18); CALCIUM LEVEL 8.7 MG/DL (8.5-10.1); CARBON DIOXIDE LEVEL 26 MEQ/L (21-32); CHLORIDE LEVEL 104 MEQ/L (98-107); CHOLESTEROL LEVEL 220 MG/DL (<200); CHOLESTEROL RISK RATIO 4.489 (<5); CREATININE FOR GFR 0.57 MG/DL (0.55-1.30); FREE T4 0.98 NG/DL (0.76-1.46); GLOMERULAR FILTRATION RATE > 60.0 (>60); GLUCOSE, FASTING 86 MG/DL (70-100); HDL CHOLESTEROL 49 MG/DL (>40); LDL CHOLESTEROL 133 MG/DL (<100); NON-HDL-C 171 MG/DL; POTASSIUM SERUM 4.1 MEQ/L (3.5-5.1); SODIUM LEVEL 139 MEQ/L (136-145); THYROID STIMULATING HORMONE 0.856 uIU/ML (0.358-3.740); TOTAL PROTEIN 8.2 GM/DL (6.4-8.2); TRIGLYCERIDES LEVEL 189 MG/DL (<150)
== END ==
LOC: M LAB REF 12:51
DX: Z01.419 Encounter for gynecological examination (general) (routine) without abnormal findings (principal)

== ENCOUNTER → 2018-01-31 | Outpatient (REF) | payer OTHER ==
[~2018-01-31] MED LIST changes: +APAP500T10 PO; +OMEP20TA PO
== END ==
LOC: M SFHCPLAZ 15:44
PROVIDERS: ATTEND Nurse Practitioner Family
DX: Z00.00 Encounter for general adult medical examination without abnormal findings (principal); F41.8 Other specified anxiety disorders; Z13.220 Encounter for screening for lipoid disorders

== ENCOUNTER → 2018-09-18 | Outpatient (CLI) | payer OTHER ==
--- NOTE | 2018-09-18 08:36 | REP ---
Clinical: Pain. Technique: AP, lateral, bilateral oblique views right hand . Findings: The osseous structures and joint spaces are intact and normal. There is no evidence for acute fracture or dislocation. Surrounding soft tissues are unremarkable. No subcutaneous emphysema or radiodense foreign body. Impression: Age-appropriate right hand radiographs . No acute fracture or dislocation. Electronically Signed by Titi Hanson MD 09/18/2018 08:28 A
== END ==
LOC: M WUC 08:18
PROVIDERS: ATTEND Family Medicine
DX: M25.541 Pain in joints of right hand (principal)

== ENCOUNTER → 2019-02-02 | Outpatient (REF) | payer OTHER ==
[~2019-02-02] MED LIST changes: +OMEP-358 PO; -OMEP20TA PO
[2019-02-02 13:26] LABS: BLOOD UREA NITROGEN 7 MG/DL (7-18); CALCIUM LEVEL 8.9 MG/DL (8.5-10.1); CARBON DIOXIDE LEVEL 31 MEQ/L (21-32); CHLORIDE LEVEL 106 MEQ/L (98-107); CREATININE FOR GFR 0.66 MG/DL (0.55-1.30); GLOMERULAR FILTRATION RATE > 60.0 (>60); GLUCOSE, FASTING 73 MG/DL (70-100); POTASSIUM SERUM 4.5 MEQ/L (3.5-5.1); SODIUM LEVEL 142 MEQ/L (136-145)
== END ==
LOC: M SFHCPLAZ 10:11
PROVIDERS: ATTEND Family Medicine
DX: N28.1 Cyst of kidney, acquired (principal)

== ENCOUNTER → 2019-02-09 | Outpatient (CLI) | payer OTHER ==
--- NOTE | 2019-02-09 09:12 | REP ---
RENAL ULTRASOUND: Real-time sonographic evaluation of the kidneys performed. The kidneys are normal size an echotexture right kidney measuring 10.6 x 4.6 x 4.0 cm and left kidney 10.8 x 4.7 x 5.2 cm. There is no renal mass, hydronephrosis or evidence of nephrolithiasis. Urinary bladder is empty. IMPRESSION: Negative renal ultrasound. Electronically Signed by Aguilar Aj MD 02/09/2019 10:57 A
== END ==
LOC: M RAD 08:17
PROVIDERS: ATTEND Family Medicine
DX: N28.1 Cyst of kidney, acquired (principal)

== ENCOUNTER 2019-10-20 06:08 | Emergency (ER) | payer OTHER ==
[~2019-10-20] VITALS: Ht 170.2 cm; Wt 65.9 kg
[2019-10-20 07:08] LABS: BASO % 0.4 % (0.0-1.0); EOS # 0.1 10^3/uL (0.0-0.5); EOS % 1.5 % (0.0-3.0); HEMATOCRIT 43.6 % (36.0-47.0); HEMOGLOBIN 14.5 g/dl (12.0-15.5); LYMPH # 1.2 10^3/uL (1.5-5.0); LYMPH % 24.7 % (24.0-44.0); MEAN CORPUSCULAR HGB CONC 33.3 g/dl (32.0-36.5); MEAN CORPUSCULAR VOLUME 93.4 fl (80.0-96.0); MONO # 0.2 10^3/uL (0.0-0.8); MONO % 4.8 % (0.0-5.0); NEUTROPHILS # 3.3 10^3/uL (1.5-8.5); NEUTROPHILS % 68.4 % (36.0-66.0); PLATELET COUNT, AUTOMATED 302 10^3/uL (150-450); RED BLOOD COUNT 4.67 10^6/uL (4.00-5.40); WHITE BLOOD COUNT 4.8 10^3/uL (4.0-10.0)
[2019-10-20 07:23] LABS: ALBUMIN 4.5 GM/DL (3.2-5.2); ALT/SGPT 16 U/L (12-78); BILIRUBIN,DIRECT 0.1 MG/DL (0.0-0.2); BILIRUBIN,TOTAL 0.2 MG/DL (0.2-1.0); BLOOD UREA NITROGEN 12 MG/DL (7-18); CALCIUM LEVEL 9.2 MG/DL (8.5-10.1); CARBON DIOXIDE LEVEL 27 MEQ/L (21-32); CHLORIDE LEVEL 108 MEQ/L (98-107); CREATININE FOR GFR 0.75 MG/DL (0.55-1.30); GLOMERULAR FILTRATION RATE > 60.0 (>60); GLUCOSE, FASTING 118 MG/DL (70-100); LIPASE 172 U/L (73-393); POTASSIUM SERUM 3.6 MEQ/L (3.5-5.1); SODIUM LEVEL 139 MEQ/L (136-145); TOTAL PROTEIN 8.5 GM/DL (6.4-8.2)
[2019-10-20 07:45] LABS: HCG, SERUM QUALITATIVE NEGATIVE (NEGATIVE)
[2019-10-20] MEDS ORDERED: DICYCLOMINE 10 MG CAP PO ONE (08:45)
[2019-10-20 08:59] VITALS: BP 105/67
== END 2019-10-20 09:01 | disposition home or self-care (01) ==
LOC: M ED 06:08
DX: R10.9 Unspecified abdominal pain (principal); R19.7 Diarrhea, unspecified; R11.0 Nausea; Z88.5 Allergy status to narcotic agent; Z77.098 Contact with and (suspected) exposure to other hazardous, chiefly nonmedicinal, chemicals

== ENCOUNTER → 2019-11-24 | Outpatient (REF) | payer OTHER | LOC: M LAB REF 16:13 | PROVIDERS: ATTEND Nurse Practitioner Family | DX: R30.0 Dysuria (principal) ==

== ENCOUNTER 2020-02-27 22:21 | Emergency (ER) | payer OTHER ==
[~2020-02-27] VITALS: Ht 170.2 cm; Wt 65.6 kg
[2020-02-27] MEDS ORDERED: MELO15TA28 PO (22:28)
[2020-02-27] MEDS ORDERED: KETOROLAC 30 MG/ML 1ML VIAL IV ONE (22:45)
[2020-02-27] MEDS ORDERED: NS 1,000 ML IV ONE (22:45)
[2020-02-27 23:24] LABS: BASO % 0.5 % (0.0-1.0); EOS # 0.2 10^3/uL (0.0-0.5); EOS % 2.4 % (0.0-3.0); HEMATOCRIT 39.8 % (36.0-47.0); HEMOGLOBIN 12.9 g/dl (12.0-15.5); LYMPH # 2.7 10^3/uL (1.5-5.0); LYMPH % 41.7 % (24.0-44.0); MEAN CORPUSCULAR HEMOGLOBIN 29.9 pg (27.0-33.0); MEAN CORPUSCULAR HGB CONC 32.4 g/dl (32.0-36.5); MEAN CORPUSCULAR VOLUME 92.3 fl (80.0-96.0); MONO # 0.6 10^3/uL (0.0-0.8); MONO % 8.9 % (0.0-5.0); NEUTROPHILS % 46.3 % (36.0-66.0); PLATELET COUNT, AUTOMATED 247 10^3/uL (150-450); RED BLOOD COUNT 4.31 10^6/uL (4.00-5.40); WHITE BLOOD COUNT 6.5 10^3/uL (4.0-10.0)
[2020-02-27] MEDS ORDERED: ISOVUE-370 76% 100ML VIAL As Ordered ONE (23:46)
[2020-02-27 23:51] LABS: ALBUMIN 3.9 GM/DL (3.2-5.2); ALT/SGPT 20 U/L (12-78); BILIRUBIN,DIRECT < 0.1 MG/DL (0.0-0.2); BILIRUBIN,TOTAL 0.2 MG/DL (0.2-1.0); LIPASE 212 U/L (73-393); TOTAL PROTEIN 7.4 GM/DL (6.4-8.2)
--- NOTE | 2020-02-28 02:32 | REPVR ---
PROCEDURE INFORMATION: Exam: US Pelvis Complete, Transabdominal and US Pelvis, Transvaginal Exam date and time: 02/28/2020 2:12 AM Age: 34 years old Clinical indication: Pelvic pain; Prior surgery; Surgery date: 6+ months; Surgery type: Tubal, ; Additional info: Hydrosalpinx on R? From CT TECHNIQUE: Imaging protocol: Real-time transabdominal and transvaginal pelvic ultrasound (complete) with image documentation. Transvaginal imaging was used for better evaluation of the endometrium, adnexa, and/or cervix. COMPARISON: CT ABD/PEL W/IV CONTRAST ONLY 02/28/2020 12:16 AM FINDINGS: Uterus/cervix: The uterus measures 8.3 cm in its cephalocaudad dimension and 3.8 x 4.8 cm in its AP and lateral dimensions. The endometrium measures 4 mm. Echogenic foci are noted adjacent to the endometrium. Right adnexa: The right ovary measures 20 x 20 x 18 mm with arterial and venous blood flow. Left adnexa: The left ovary measures 2.4 x 2.8 x 2.3 cm and demonstrates arterial and venous blood flow with a small follicle measuring 17 x 12 x 10 mm. Intraperitoneal space: Trace fluid is noted to extend into a scar. Urinary bladder: The urinary bladder is within normal limits. IMPRESSION: 1. Trace fluid extending into a scar. 2. Echogenic foci are noted adjacent to the endometrium about full significance. 3. Otherwise negative pelvic sonogram. Electronically signed by: Urban Rodrigues On 02/28/2020 02:33:02 AM
[2020-02-28] MEDS ORDERED: FLAG500T PO (02:40)
[2020-02-28 02:50] VITALS: BP 124/62
[2020-02-28 12:03] LABS: CHLAMYDIA DNA AMPLIFICATION NEGATIVE (NEGATIVE); GC DNA AMPLIFICATION NEGATIVE (NEGATIVE)
--- NOTE | 2020-02-29 08:59 | REP ---
INDICATION: rlq pain. COMPARISON: None TECHNIQUE: Axial contrast-enhanced images from the lung bases to the pubic symphysis using 100 cc Isovue 370 intravenous contrast material. Coronal and sagittal reformations obtained. This CT examination was performed using the following dose reduction techniques: Automated exposure control, adjustment of mA and/or kv according to the patient's size, and the use of iterative reconstruction technique. FINDINGS: Lung bases are clear. Visualized heart and pericardium normal. Liver, spleen, pancreas, gallbladder, bilateral adrenal glands and kidneys are normal. The enteric system including stomach, small, and large bowel appears relatively normal and without obstruction or acute inflammatory process. Normal terminal ileum and appendix are identified in the right lower quadrant. Pelvis demonstrates normal bladder and suspected myomatous changes to the uterus. Incidental rim enhancing 2.1 cm left ovarian cyst likely dominant follicle and related to menstrual cycle. No ascites. No free air. No intraperitoneal or retroperitoneal adenopathy. Abdominal aorta and vasculature appear normal. Musculoskeletal structures are intact and chronic scoliosis is appreciated. IMPRESSION: No acute abdominopelvic pathology appreciated. <Electronically signed by Titi Hanson > 02/29/20 [id number]
== END 2020-02-28 02:51 | disposition home or self-care (01) ==
LOC: M ED 22:21
DX: N70.11 Chronic salpingitis (principal); R51.9 Headache, unspecified; J45.909 Unspecified asthma, uncomplicated; F41.9 Anxiety disorder, unspecified; F32.9 Major depressive disorder, single episode, unspecified; Z88.5 Allergy status to narcotic agent
CPT/HCPCS: 74177; 76830; 76856; 80047; 80076; 81001; 83690; 84702; 85025; 87491; 87591; 93976; 96361; 96374; 99284; J1885; Q9967

== ENCOUNTER → 2020-05-27 | Outpatient (CLI) | payer OTHER ==
[~2020-05-27] MED LIST changes: +FLAG500T PO; +MELO15TA28 PO; +VITMTA PO
== END ==
LOC: M LABSMTC 09:49
PROVIDERS: ATTEND Anesthesiology
DX: Z01.812 Encounter for preprocedural laboratory examination (principal); Z20.822 Contact with and (suspected) exposure to COVID-19

== ENCOUNTER 2020-06-01 06:00 | Day surgery (SDC) | payer OTHER ==
[~2020-06-01] VITALS: Ht 172.7 cm; Wt 62.1 kg
[2020-06-01 06:37] LABS: HEMATOCRIT 39.5 % (36.0-47.0); HEMOGLOBIN 13.2 g/dl (12.0-15.5); MEAN CORPUSCULAR HEMOGLOBIN 30.8 pg (27.0-33.0); MEAN CORPUSCULAR HGB CONC 33.4 g/dl (32.0-36.5); MEAN CORPUSCULAR VOLUME 92.1 fl (80.0-96.0); PLATELET COUNT, AUTOMATED 251 10^3/uL (150-450); RED BLOOD COUNT 4.29 10^6/uL (4.00-5.40); WHITE BLOOD COUNT 4.4 10^3/uL (4.0-10.0)
[2020-06-01] MEDS ORDERED: LR 1,000 ML IV ONE (07:00)
[2020-06-01] MEDS ORDERED: ceFAZolin SOD 2 GM in IV 1 EA IV ONE (07:00)
[2020-06-01] MEDS ORDERED: fentaNYL 100 MCG/2 ML INJECTION (J3010) As Ordered ONE ×2 (07:19→08:17)
[2020-06-01] MEDS ORDERED: propofoL 200 MG/20 ML VIAL As Ordered ONE (07:19)
[2020-06-01] MEDS ORDERED: ROCURONIUM BROMIDE 50 MG/5 ML VIAL As Ordered ONE (07:19)
[2020-06-01] MEDS ORDERED: LIDOCAINE 2% 100MG/5ML SDV (FOR ANES.) As Ordered ONE (07:19)
[2020-06-01] MEDS ORDERED: METOCLOPRAMIDE INJ 10MG/2ML VIAL (J2765 PER 1) As Ordered ONE (07:19)
[2020-06-01] MEDS ORDERED: ONDANSETRON 4MG/2ML VIAL As Ordered ONE (07:19)
[2020-06-01] MEDS ORDERED: BUPIVACAINE/EPIN 0.25% 30 ML VIAL As Ordered ONE (07:19)
[2020-06-01] MEDS ORDERED: FLUORESCEIN 10% (100MG/ML) 5 ML VIAL As Ordered ONE (07:19)
[2020-06-01] MEDS ORDERED: MIDAZOLAM INJ 2MG/2ML VIAL (J2250 PER 1MG) As Ordered ONE (07:20)
[2020-06-01 07:31] LABS: HCG, SERUM QUALITATIVE NEGATIVE (NEGATIVE)
[2020-06-01] MEDS ORDERED: ACETAMINOPHEN 1000MG 100ML IV BTL (OFIRMEV) (J0131 PER 10MG) As Ordered ONE (08:16)
[2020-06-01] MEDS ORDERED: HYDROmorphone HCL 2 MG/ML 1ML VIAL (J1170) As Ordered ONE (08:17)
[2020-06-01] MEDS ORDERED: SUGAMMADEX SODIUM 500 MG/5 ML VIAL (BRIDION) As Ordered ONE (08:59)
[2020-06-01] MEDS ORDERED: IBUP80TA PO (09:08)
[2020-06-01] MEDS ORDERED: PERC5TAB12 PO ×2 (09:08→09:13)
[2020-06-01] MEDS ORDERED: MEPERIDINE INJ 25 MG/ML VIAL (J2175) As Ordered ONE (09:23)
[2020-06-01] MEDS ORDERED: LR 1,000 ML IV SCH (09:30)
[2020-06-01] MEDS ORDERED: HYDROMORPHONE HCL 0.5 MG/ 0.5 ML SYRINGE (J1170 PER 1) IV PRN (09:30)
[2020-06-01] MEDS ORDERED: fentaNYL 100 MCG/2 ML INJECTION (J3010) IV PRN (09:30)
[2020-06-01] MEDS ORDERED: oxyCODONE 5MG TAB PO PRN (09:30)
[2020-06-01] MEDS ORDERED: ONDANSETRON 4MG/2ML VIAL IV PRN (09:30)
[2020-06-01] MEDS ORDERED: MEPERIDINE INJ 25 MG/ML VIAL (J2175) IV PRN (09:30)
[2020-06-01] MEDS ORDERED: IBUPROFEN 800 MG TAB PO PRN (10:15)
[2020-06-01] MEDS ORDERED: PERCOCET 5MG/325MG TAB PO PRN (10:15)
--- NOTE | 2020-06-01 10:42 | RO ---
OPERATIVE NOTE DATE OF OPERATION: 06/01/2020 INDICATION: Swetha is a 34-year-old female with extensive history of pelvic pain and right hydrosalpinx. She also had had a prior endometrial ablation for bleeding. After extensive counseling in the office and at the patient's request, decision was made to proceed with a hysterectomy and removal of both tubes. PREOPERATIVE DIAGNOSES: 1. Pelvic pain. 2. Right hydrosalpinx. 3. Status post endometrial ablation. POSTOPERATIVE DIAGNOSES: 1. Pelvic pain. 2. Right hydrosalpinx. 3. Status post endometrial ablation. 4. Pelvic adhesions. PROCEDURES: 1. Robotic-assisted total hysterectomy. 2. Removal of both tubes. 3. Lysis of adhesion. 4. Cystoscopy. SURGEON: Hany Zarate DO. LITERACY SPECIALIST: LISETH Cedillo. ANESTHESIA: General. COMPLICATIONS: None. ESTIMATED BLOOD LOSS: 20 mL. SPECIMENS SENT TO LAB: Uterus and tubes. FINDINGS: Normal appearing uterus with adhesions in the lower uterine segment to the bladder due to her prior section. Bilateral ovaries appear to be within normal limits. The right tube was transected with a small amount of fluid towards the fimbriated end. The left tube appeared to be within normal limits. On cystoscopy, bilateral ureteral jets were noted. No evidence of any injury. DESCRIPTION OF PROCEDURE: After obtaining informed consent, patient was taken to the operating room where general anesthetic was found to be adequate. She was then draped and prepped in the usual sterile fashion in the dorsal lithotomy position. At this point, a Alonso catheter was placed in the bladder for drainage. We then placed the uterine manipulator. Attention was then turned to the uterus where an 8 mm infraumbilical incision was made. Using the Veress needle, the abdomen was insufflated with CO2 gas to approximately 3.5 liters. We then placed the 8 mm trocar with the laparoscope under direct visualization. Two left 8 mm lateral ports were placed for robotic arm 1 in the assist port on the right and an 8 mm lateral port was placed for robotic arm 2. The patient was placed in steep Trendelenburg. The robot was brought to the patient's right side, and the camera port was docked in the usual fashion. Proper targeting was performed. After passing the targeting, the remaining arms were docked. We then placed a bipolar grasper in arm 2 and a vessel sealer in arm 1. At this point, I unscrubbed and went to the surgeon's site and began the hysterectomy. Upon evaluation of the pelvis, the above-noted findings were found. The tubes were found to be adherent to the sidewall. At this point, lysis of adhesions was performed with the vessel sealer. We then transected the mesosalpinx all the way down to the uteroovarian ligament. The uteroovarian ligament was cauterized and cut using the vessel sealer. Serial bites were taken to include the uterine artery. At this point the bladder flap was created with the bladder adhesions noted that were lysed to allow the bladder to be pushed out of the operative field. The opposite side was done in a similar fashion. At this point, both uterine arteries were secure. The vessel sealer was removed and Endo Shear was placed. Anterior and posterior colpotomy was performed. The uterus as well as bilateral tubes were removed through the vagina. At this point, the Endo Shear was removed. Needle flatbed truck driver placed, and a 2-0 V-Loc suture was introduced. The vaginal cuff was closed in a running fashion using the 2-0 V-Loc suture. The peritoneum over the vaginal cuff was also closed using a 2-0 V-Loc suture. One milliliter of Fluorescein was given by the anesthesiologist to assist in the cystoscopy. I then rescrubbed and went to the patient's side. Retrograde filled the bladder with 230 mL of normal saline. Cystoscopy was performed. Bilateral ureteral jets noted. No evidence of any bladder injury noted. At this point, the cystoscope was removed. Alonso catheter was placed back in the bladder for drainage. We then undocked the robot completely and removed the ports and closed the robotic ports using 3-0 Vicryl in a subcuticular fashion. Marcaine 0.25% was placed for postoperative pain. Dermabond placed. Patient tolerated the procedure well. She was then transferred to the recovery room in stable condition. cc: [facility]
[2020-06-01 11:45] VITALS: BP 112/64
[2020-06-01] MEDS ORDERED: SIMETHICONE 80MG CHEW TAB PO SCH (12:00)
[2020-06-01 12:15] VITALS: BP 113/64
[2020-06-01 13:15] VITALS: BP 105/72
[2020-06-01 14:15] VITALS: BP 105/72
== END 2020-06-01 15:50 | disposition home or self-care (01) ==
LOC: M SDC 06:00 → M MS5PR 11:20 → M SDC 15:50
PROVIDERS: ATTEND Obstetrics & Gynecology
DX: N72 Inflammatory disease of cervix uteri (principal); N88.8 Other specified noninflammatory disorders of cervix uteri; N70.13 Chronic salpingitis and oophoritis; N99.4 Postprocedural pelvic peritoneal adhesions; I95.9 Hypotension, unspecified; K21.9 Gastro-esophageal reflux disease without esophagitis; M41.9 Scoliosis, unspecified; Z88.5 Allergy status to narcotic agent; Z91.018 Allergy to other foods
CPT/HCPCS: 36415; 58571; 84703; 85027; 86850; 86900; 86901; 88307; J0131; J0690; J1170; J2175; J2250; J2405; J2765; J3010; S2900

== ENCOUNTER 2020-07-08 03:31 | Emergency (ER) | payer OTHER ==
[~2020-07-08] VITALS: Ht 170.2 cm; Wt 62.2 kg
[~2020-07-08 03:31] MED LIST changes: +IBUP80TA PO; +PERC5TAB12 PO
[2020-07-08 03:32] VITALS: BP 135/86
[2020-07-08] MEDS ORDERED: LEXA1TAB PO (03:46)
== END 2020-07-08 07:35 | disposition left against medical advice (07) ==
LOC: M ED 03:31
DX: Z53.29 Procedure and treatment not carried out because of patient's decision for other reasons (principal)

== ENCOUNTER → 2021-12-27 | Outpatient (CLI) | payer OTHER ==
[~2021-12-27] MED LIST changes: +LEXA1TAB PO
== END ==
LOC: M WHC 16:07
PROVIDERS: ATTEND Nurse Practitioner Family
DX: Z12.31 Encounter for screening mammogram for malignant neoplasm of breast (principal)

== ENCOUNTER 2022-08-02 09:52 | Emergency (ER) | payer OTHER ==
[~2022-08-02] VITALS: Ht 172.7 cm; Wt 72.5 kg
[2022-08-02] MEDS ORDERED: FAMO40TA3 PO (10:41)
[2022-08-02] MEDS ORDERED: ROSU10TA6 PO (10:41)
[2022-08-02] MEDS ORDERED: FLUO10CA18 (10:41)
[2022-08-02] MEDS ORDERED: HYDR-3363 (10:41)
[2022-08-02 13:27] VITALS: BP 114/70; TEMP 97; O2SAT 99
== END 2022-08-02 13:31 | disposition home or self-care (01) ==
LOC: M ED 09:52
DX: M71.21 Synovial cyst of popliteal space [Baker], right knee (principal); Z88.5 Allergy status to narcotic agent; Z91.018 Allergy to other foods; Z79.899 Other long term (current) drug therapy

== ENCOUNTER → 2023-02-26 | Outpatient (CLI) | payer OTHER ==
[~2023-02-26] MED LIST changes: +FAMO40TA3 PO; +FLUO10CA18; +HYDR-3363; +ROSU10TA6 PO
== END ==
LOC: M WHC 12:18
PROVIDERS: ATTEND Nurse Practitioner Family
DX: Z12.31 Encounter for screening mammogram for malignant neoplasm of breast (principal); R92.343 Mammographic extreme density, bilateral breasts

== ENCOUNTER 2023-07-25 06:21 | Emergency (ER) | payer OTHER ==
[~2023-07-25 06:21] MED LIST changes: +FLUO-290; -FLUO10CA18; -ROSU10TA6 PO; +ROSU10TA61 PO
[2023-07-25] MEDS ORDERED: VITA100093 (06:48)
[2023-07-25 07:00] LABS: BASO % 0.4 % (0.0-1.0); EOS # 0.1 10^3/uL (0.0-0.5); EOS % 1.3 % (0.0-3.0); HEMATOCRIT 39.9 % (36.0-47.0); HEMOGLOBIN 13.6 g/dl (12.0-15.5); LYMPH # 1.5 10^3/uL (1.5-5.0); LYMPH % 21.9 % (24.0-44.0); MEAN CORPUSCULAR HGB CONC 34.1 g/dl (32.0-36.5); MEAN CORPUSCULAR VOLUME 90.9 fl (80.0-96.0); MONO # 0.5 10^3/uL (0.0-0.8); MONO % 6.6 % (2.0-8.0); NEUTROPHILS # 4.9 10^3/uL (1.5-8.5); NEUTROPHILS % 69.7 % (36.0-66.0); PLATELET COUNT, AUTOMATED 254 10^3/uL (150-450); RED BLOOD COUNT 4.39 10^6/uL (4.00-5.40)
[2023-07-25 07:25] LABS: LIPASE 44 U/L (12-53)
[2023-07-25 07:27] LABS: HCG, SERUM QUALITATIVE NEGATIVE (NEGATIVE)
[2023-07-25 07:28] LABS: ALBUMIN 3.9 G/DL (3.2-5.2); ALKALINE PHOSPHATASE 66 U/L (46-116); ALT/SGPT 20 U/L (7.0-40); AST/SGOT 9 U/L (<34); BILIRUBIN,DIRECT 0.1 MG/DL (<0.4); BILIRUBIN,TOTAL 0.4 MG/DL (0.3-1.2); BLOOD UREA NITROGEN 13 MG/DL (9-23); CALCIUM LEVEL 8.8 MG/DL (8.5-10.1); CARBON DIOXIDE LEVEL 26 MMOL/L (20-31); CHLORIDE LEVEL 108 MMOL/L (98-107); CREATININE FOR GFR 0.69 MG/DL (0.55-1.30); GLOMERULAR FILTRATION RATE > 60.0 (>60); GLUCOSE, FASTING 132 MG/DL (60-100); POTASSIUM SERUM 3.9 MMOL/L (3.5-5.1); SODIUM LEVEL 139 MMOL/L (136-145); TOTAL PROTEIN 6.9 G/DL (5.7-8.2)
[2023-07-25] MEDS: ONDANSETRON 4MG 2ML VIAL IV ONE (10:49)
[2023-07-25] MEDS: KETOROLAC 30 MG/ML 1ML VIAL IV ONE (10:49)
[2023-07-25] MEDS ORDERED: ONDA-282 PO (10:57)
[2023-07-25] MEDS ORDERED: KETO10TAB PO (10:57)
[2023-07-25 12:04] VITALS: BP 127/82; TEMP 98.1; O2SAT 99
== END 2023-07-25 12:12 | disposition home or self-care (01) ==
LOC: M ED 06:21
DX: R11.2 Nausea with vomiting, unspecified (principal); N20.1 Calculus of ureter; Z79.83 Long term (current) use of bisphosphonates; Z79.1 Long term (current) use of non-steroidal anti-inflammatories (NSAID); Z79.02 Long term (current) use of antithrombotics/antiplatelets; Z79.899 Other long term (current) drug therapy; Z91.018 Allergy to other foods; Z88.5 Allergy status to narcotic agent
CPT/HCPCS: 74176; 80048; 80076; 81001; 83690; 84703; 85025; 87507; 93041; 96374; 99284; J1885; J2405